=== PATIENT | female | born 1965 | race African-American/Black ===

== ENCOUNTER 2023-01-01 08:47 | Emergency (ER) | payer OTHER, MEDICAID ==
[~2023-01-01] VITALS: Ht 177.8 cm; Wt 141.0 kg
[~2023-01-01 08:47] MED LIST: ATEN-42 PO
[2023-01-01 10:15] LABS: BASOPHILS % 0.3 % (0.0-2.0); HEMATOCRIT. 40.3 % (36.0-48.0); HEMOGLOBIN. 13.2 g/dL (12.0-16.0); LYMPHOCYTES % 26.8 % (20.0-50.0); MEAN CORPUSCULAR HEMOGLOBIN 28.2 pg (28.0-32.0); MEAN PLATELET VOLUME 11.5 fl (7.4-10.4); MONOCYTES % 8.4 % (2.0-8.0); NEUTROPHILS % 63.5 % (40.0-76.0); PLATELET 220 x1000/uL (130-400); RED BLOOD CELL COUNT 4.68 mill/uL (4.2-5.4); RED CELL DISTRIBUTION WIDTH 17.8 % (11.6-14.6)
[2023-01-01 11:10] LABS: CHLORIDE 102 mEq/L (98-107)
[2023-01-01 11:20] LABS: ETHANOL BLOOD < 10 mg/dL
[2023-01-01] MEDS: AMLODIPINE 5MG TABLET PO SCH (16:45)
[2023-01-01] MEDS: ATORVASTATIN CALCIUM 10MG TABLET PO SCH (21:30)
[2023-01-01] MEDS: OXYBUTYNIN CHLORIDE 5MG TABLET PO SCH (21:30)
[2023-01-01] MEDS ORDERED: IBUPROFEN 400MG TABLET PO ONE (23:00)
[2023-01-01] MEDS ORDERED: OLANZAPINE 10 MG/VIAL IM ONE (23:00)
[2023-01-02 06:18] LABS: *AMPHETAMINES SCREEN URINE NEGATIVE (NEGATIVE); *BARBITURATES SCREEN URINE NEGATIVE (NEGATIVE); *BENZODIAZEPINES SCREEN URINE NEGATIVE (NEGATIVE); *COCAINE SCREEN URINE NEGATIVE (NEGATIVE); CANNABINOID URINE SCREEN NEGATIVE (NEGATIVE); METHADONE URINE SCREEN NEGATIVE (NEGATIVE); OPIATES URINE SCREEN PRESUMTIVE POSITIVE (NEGATIVE); PHENCYCLIDINE URINE SCREEN NEGATIVE (NEGATIVE)
[2023-01-02] MEDS ORDERED: LEVOTHYROXINE SODIUM 112MCG TABLET PO ONE (09:00)
[2023-01-02] MEDS: AMLODIPINE 5MG TABLET PO SCH (11:59)
[2023-01-02] MEDS: LISINOPRIL 40MG TABLET PO SCH (11:59)
[2023-01-02] MEDS: FUROSEMIDE 40MG TABLET PO SCH (13:34)
[2023-01-02] MEDS: OXYBUTYNIN CHLORIDE 5MG TABLET PO SCH ×2 (13:35→21:30)
[2023-01-02] MEDS: SERTRALINE HCL 25MG TABLET PO SCH (13:36)
[2023-01-02] MEDS: ATORVASTATIN CALCIUM 10MG TABLET PO SCH (21:30)
[2023-01-03] MEDS: SERTRALINE HCL 25MG TABLET PO SCH (09:00)
[2023-01-03] MEDS: LISINOPRIL 40MG TABLET PO SCH (09:00)
[2023-01-03] MEDS: OXYBUTYNIN CHLORIDE 5MG TABLET PO SCH (09:00)
[2023-01-03] MEDS: FUROSEMIDE 40MG TABLET PO SCH (09:00)
[2023-01-03] MEDS: AMLODIPINE 5MG TABLET PO SCH (09:00)
[2023-01-03 16:17] VITALS: BP 146/87
== END 2023-01-03 16:20 | disposition home or self-care (01) ==
LOC: ER 09:07
DX: F32.A Depression, unspecified (principal); F90.9 Attention-deficit hyperactivity disorder, unspecified type; R45.851 Suicidal ideations; Z20.822 Contact with and (suspected) exposure to COVID-19; Z59.00 Homelessness unspecified; Z88.0 Allergy status to penicillin
CPT/HCPCS: 36415; 80053; 80305; 80307; 80320; 80329; 85025; 87426; 96372; 99285; C9803; J3490; G0480